=== PATIENT | male | born 1985 | race Caucasian/White ===

== ENCOUNTER → 2022-10-26 | Outpatient (CLI) | payer OTHER ==
[~2022-10-26] MED LIST: ACET-654 PO; AMBIEN PO; BUPR75TA5 PO; MINI2CAP OR; ONDA-1 PO; PROZ20CA11 PO; TRAZ150T OR; ZOLO100T OR; ZOLO50TA OR; ZOLP-189 PO; melatonin PO
== END ==
LOC: M RAD 16:18
PROVIDERS: ATTEND Registered Nurse
DX: M25.552 Pain in left hip (principal); M25.511 Pain in right shoulder